=== PATIENT | male | born 1960 | race Caucasian/White ===

== ENCOUNTER 2020-02-02 11:28 | Emergency (ER) | payer BC, SELFPAY ==
[2020-02-02 11:43] VITALS: BP 157/88; PULSE 77; RESP 16; TEMP 36.9; O2SAT 97; BMI 39.5
[2020-02-02] MEDS: Lidocaine HCl 2 % MPF 5 ML VIAL INFILTRATI ×2 (12:12)
--- NOTE | 2020-02-02 12:18 | ED_ITS ---
HPI - Skin/Abscess/Foreign Bdy General Chief complaint: Skin/Abscess/Foreign Body Stated complaint: abscess Time Seen by Provider: 02/02/20 11:46 Source: patient Mode of arrival: ambulatory Limitations: no limitations History of Present Illness HPI narrative: patient presents to ED for right-sided upper cheek mass with redness and swelling. Patient states he was bit by insects which he thought was a spider last week and was placed on Bactrim for the past 5 days and now states there is drainage from area of erythema the right side of cheek. Patient states he sleeps most of last night. Patient states swelling has improved. Patient denies any shortness of breath, sensation of throat closing. Fever, chills. Related Data Previous Rx's Medication Instructions Recorded cephalexin [Keflex] 500 mg PO QID #28 cap 02/02/20 doxycycline monohydrate 100 mg PO BID #14 cap 02/02/20 naproxen 500 mg PO BID PRN #20 tab 02/02/20 Allergies Allergy/AdvReac Type Severity Reaction Status Date / Time rosuvastatin [From Crestor] AdvReac Nausea and Verified 02/02/20 11:42 Vomiting Review of Systems Review of Systems: Yes all other systems are reviewed and are negative Constitutional: Constitutional: Reports as per HPI and Reports no additional constitutional complaints Eyes: Eyes: Reports as per HPI and Reports no additional eye complaints ENT: Reports system reviewed and no additional complaints, except as documented and Reports as per HPI Comments: right-sided facial abscess/braeden lulitis Cardiovascular: Cardiovascular: Reports as per HPI and Reports no additional cardiovascular complaints Respiratory: Respiratory: Reports as per HPI and Reports no additional resp iratory complaints Gastrointestinal: Gastrointestinal: Reports as per HPI and Reports no additional gastrointestinal complaints Musculoskeletal: Musculoskeletal: Reports no additional musculoskeletal complaints and Reports as per HPI Neurologic: Reports system reviewed and no additional complaints, except as documented and Reports as per HPI Psychiatric: Psychiatric: Reports no additional psychiatric complaints and Reports as per HPI PMF Past Medical History Medical History Abdominal hernia HTN (hypertension) Prediabetes Surgical History H/O foot surgery H/O lateral meniscus repair of left knee H/O sinus surgery History of appendectomy Social History Social History Advance Directives: No Advance Directives Information Provided: No Physical Exam Vital Signs: Vital Signs: Last Vital Signs Temp 98.4 F 02/02/20 11:43 Pulse 77 02/02/20 11:43 Resp 16 02/02/20 11:43 BP 157/88 H 02/02/20 11:43 Pulse Ox 97 02/02/20 11:43 Body Mass Index 39.5 Const: General: cooperative, healthy appearing, comfortable, no acute distress, well developed, alert, awake and Physically active HENMT: Other: right cheek positive for area of erythema, palpable mass, and some fluctuance. Mass also feels hard. Negative presently for any active drainage. Positive for point of entry from windows drainage. Oral cavity negative for any be Coastal swelling, swelling of the gums, or teeth infections. Negative for swelling of uvula. Patient speaking in full sentences Head: Yes normal to inspection and Yes No palpable skull fracture present Eyes: General: appearance normal, both eyes and all related structures Neck: Neck: Yes normal visual inspection, Yes full ROM, Yes no lymphadenopathy, Yes no meningeal signs, Yes trachea midline, Yes supple and No tender Chest: Chest palpation & inspection: normal inspection of the chest, normal palpation of entire chest wall and no localized rib tenderness Resp: Effort & Inspection: normal respiratory effort and able to speak in complete sentences Auscultation: clear to auscultation bilaterally Cardio: Jugular venous distension: no JVD Heart sounds: S1 normal heart sound present and S2 normal heart sound present GI: Inspection: Yes normal to inspection and No abdominal wall ecchymosis Palpation (GI): Soft to palpation, not firm, nontender, no guarding and not rigid : General: No CVA tenderness and Yes no CVA tenderness Back/Spine/Pelvis: Back: no CVA tenderness, No CVA tenderness and No back tenderness Skin: General skin exam: no rashes or lesions noted Neuro: General: gait normal, no meningeal signs and CN's II-XI intact bilaterally Cranial nerves: Yes CN's II-XII intact bilaterally Extrem: General: Yes normal to inspection and Yes full ROM Psych: Appearance: grossly normal, well kempt and not disheveled Course Course Course Narrative: bedside ultrasound right side of face shows small collection of abscess and rest of the site with erythema shows signs for cellulitis. Will attempt I and D with small incision where marker is placed on area of most fluctuance an abscess. Tdap will be ordered. Patient antibiotics will be changed from Bactrim to doxycycline and Keflex. Reevaluation(s) Reevaluation #1: right-sided facial abscess around 3 cm was anesthetized with 2% lidocaine. 6 mL was used. Wound was cleaned with sterile normal saline and Betadine. Size 11 blade was used for incision and copious amounts of yellow discharge mixed with blood was drained. Forceps also used to open up pockets. Inside incision wound was washed with normal saline. Packing placed a new dressing. Patient states he feels better. patient given tetanus injection. Patient informed to stop taking Bactrim and instead will be prescribed Keflex and doxycycline. Face is now significantly less swollen and patient feels better. Time: 13:20 MDM - Skin/Abscess/Foreign Bdy MDM Narrative Medical decision making narrative: Facial cellulitis/abscess Discharge Plan Discharge Clinical Impression: Cellulitis and abscess of face Patient Disposition: Home, Self-Care Instructions: Cellulitis (ED), Abscess (ED) Additional Instructions: return to the ED for worsening facial pain, increased swelling, throat pain, shortness of breath, drooling, weakness, or any other concerning symptoms. stop taking Bactrim. Instead take Keflex and doxycycline. Return to the ED in 2 days for repacking of abscess Prescriptions: New cephalexin [Keflex] 500 mg capsule 500 mg PO QID Qty: 28 RF: 0 doxycycline monohydrate 100 mg capsule 100 mg PO BID Qty: 14 RF: 0 naproxen 500 mg tablet 500 mg PO BID PRN (Reason: pain) Qty: 20 RF: 0 Referrals: Leif Mejia MD [Primary Care Provider] - 2 days (Right facial cellulitis/abscess) Stand Alone Forms: Work/School Release Interventions: ED Discharge Assessment Last Done: 02/02/20 14:01 Discharge Date/Time: 02/02/20 14:02 Print Language: Moldovan
--- NOTE | 2020-02-02 14:02 | PC.NURSE ---
cece remy in to assess, perform i&d after us performed, dsd applied
== END 2020-02-02 14:02 | disposition home or self-care (01) ==
PROVIDERS: Emergency Provider Emergency Medicine; PCP Internal Medicine
DX: L03.211 Cellulitis of face (principal); L02.01 Cutaneous abscess of face
CPT/HCPCS: 10060; 87071; 87077; 87147; 87186; 87205; 90471; 90715; 99283; 99284

== ENCOUNTER 2020-02-03 11:25 | Emergency (ER) | payer BC, SELFPAY ==
[2020-02-03 11:33] VITALS: BP 166/95; PULSE 70; RESP 18; TEMP 37; O2SAT 97; BMI 39.5
--- NOTE | 2020-02-03 12:25 | ED.SKABFB ---
HPI - Skin/Abscess/Foreign Bdy General Chief complaint: Skin/Abscess/Foreign Body <TOO Stewart - Last Filed: 02/03/20 13:27> Stated complaint: Wound check <TOO Stewart - Last Filed: 02/03/20 13:27> Source: patient <TOO Stewart - Last Filed: 02/03/20 13:27> Mode of arrival: ambulatory <TOO Stewart - Last Filed: 02/03/20 13:27> Limitations: no limitations <TOO Stewart - Last Filed: 02/03/20 13:27> History of Present Illness HPI narrative: patient presents to the ED for wound check evaluation and new packing placed. Patient had right facial abscess drained yesterday. Patient denies any other complaint. <TOO Stewart - Last Filed: 02/03/20 13:27> Related Data Home medications: Previous Rx's Medication Instructions Recorded cephalexin [Keflex] 500 mg PO QID #28 cap 02/02/20 doxycycline monohydrate 100 mg PO BID #14 cap 02/02/20 naproxen 500 mg PO BID PRN #20 tab 02/02/20 <TOO Stewart - Last Filed: 02/03/20 13:27> Allergies/Adverse reactions: Allergies Allergy/AdvReac Type Severity Reaction Status Date / Time rosuvastatin [From Crestor] AdvReac Nausea and Verified 02/02/20 11:42 Vomiting <TOO Stewart - Last Filed: 02/03/20 13:27> Review of Systems Review of Systems: Yes all other systems are reviewed and are negative <TOO Stewart - Last Filed: 02/03/20 13:27> Constitutional: Constitutional: Reports as per HPI and Reports no additional constitutional complaints <TOO Stewart Last Filed: 02/03/20 13:27> Eyes: Eyes: Reports as per HPI and Reports no additional eye complaints <TOO Stewart - Last Filed: 02/03/20 13:27> ENT: Reports system reviewed and no additional complaints, except as documented and Reports as per HPI <TOO Stewart Last Filed: 02/03/20 13:27> Cardiovascular: Cardiovascular: Reports as per HPI and Reports no additional cardiovascular complaints <TOO Stewart - Last Filed: 02/03/20 13:27> Respiratory: Respiratory: Reports as per HPI and Reports no additional respiratory complaints <TOO Stewart Last Filed: 02/03/20 13:27> Gastrointestinal: Gastrointestinal: Reports as per HPI and Reports no additional gastrointestinal complaints <TOO Stewart - Last Filed: 02/03/20 13:27> Musculoskeletal: Musculoskeletal: Reports no additional musculoskeletal complaints and Reports as per HPI <TOO Stewart - Last Filed: 02/03/20 13:27> Neurologic: Reports system reviewed and no additional complaints, except as documented and Reports as per HPI <TOO Stewart Last Filed: 02/03/20 13:27> Psychiatric: Psychiatric: Reports no additional psychiatric complaints and Reports as per HPI <TOO Stewart - Last Filed: 02/03/20 13:27> PMF Past Medical History Medical History: Medical History Abdominal hernia HTN (hypertension) Prediabetes Sleep apnea <TOO Stewart - Last Filed: 02/03/20 13:27> Surgical History: Surgical History H/O foot surgery H/O lateral meniscus repair of left knee H/O sinus surgery History of appendectomy <TOO Stewart Last Filed: 02/03/20 13:27> Social History Social History: Social History Alcohol intake: current Alcohol intake frequency: a few times a week Alcohol type: beer and hard liquor Smoking Status: Current every day smoker Advance Directives: No Advance Directives Information Provided: No <TOO Stewart - Last Filed: 02/03/20 13:27> Physical Exam Vital Signs: Vital Signs: Last Vital Signs Temp 98.6 F 02/03/20 11:33 Pulse 70 02/03/20 11:33 Resp 18 02/03/20 11:33 BP 166/95 H 02/03/20 11:33 Pulse Ox 97 02/03/20 11:33 Body Mass Index 39.5 <TOO Stewart - Last Filed: 02/03/20 13:27> Vital Signs: Last Vital Signs Temp 98.6 F 02/03/20 11:33 Pulse 70 02/03/20 11:33 Resp 18 02/03/20 11:33 BP 166/95 H 02/03/20 11:33 Pulse Ox 97 02/03/20 11:33 Body Mass Index 39.5 <Justin Mckeon MD - Last Filed: 02/21/20 20:22> Const: General: cooperative, healthy appearing, no acute distress, well developed and alert <TOO Stewart - Last Filed: 02/03/20 13:27> Orientation/consciousness: oriented to person, oriented to place, oriented to time and patient oriented x3 <TOO Stewart - Last Filed: 02/03/20 13:27> HENMT: Other: Right facial abscess is healing. bleeding through dressing. Negative for active profuse Drainage <TOO Stewart - Last Filed: 02/03/20 13:27> Head: Yes normal to inspection and Yes No palpable skull fracture present <TOO Stewart - Last Filed: 02/03/20 13:27> Eyes: General: appearance normal, both eyes and all related structures <TOO Stewart - Last Filed: 02/03/20 13:27> Neck: Neck: Yes normal visual inspection and Yes full ROM <TOO Stewart - Last Filed: 02/03/20 13:27> Chest: Chest palpation & inspection: normal inspection of the chest and normal palpation of entire chest wall <TOO Stewart - Last Filed: 02/03/20 13:27> Resp: Effort & Inspection: normal respiratory effort and able to speak in complete sentences <TOO Stewart Last Filed: 02/03/20 13:27> Cardio: Jugular venous distension: no JVD <TOO Stewart - Last Filed: 02/03/20 13:27> Heart sounds: S1 normal heart sound present and S2 normal heart sound present <TOO Stewart Last Filed: 02/03/20 13:27> GI: Inspection: Yes normal to inspection <TOO Stewart Last Filed: 02/03/20 13:27> : General: Yes CVA tenderness and Yes no CVA tenderness <TOO Stewart - Last Filed: 02/03/20 13:27> Back/Spine/Pelvis: Back: no CVA tenderness and CVA tenderness <TOO Stewart - Last Filed: 02/03/20 13:27> Skin: General skin exam: no rashes or lesions noted <TOO Stewart - Last Filed: 02/03/20 13:27> Neuro: General: oriented to person, oriented to place, oriented to time, patient oriented x3 and CN's II-XI intact bilaterally <TOO Stewart - Last Filed: 02/03/20 13:27> Cranial nerves: Yes CN's II-XII intact bilaterally <OTO Stewart - Last Filed: 02/03/20 13:27> Extrem: General: Yes normal to inspection and Yes full ROM <TOO Stewart - Last Filed: 02/03/20 13:27> Psych: Appearance: grossly normal, well kempt and not disheveled <TOO Stewart - Last Filed: 02/03/20 13:27> Course Course Course Narrative: dressing and packing was removed. Wound clean with Betadine iodine and alcohol prep. New packing was placed into the wound. A new dressing placed. <TOO Stewart - Last Filed: 02/03/20 13:27> I have reviewed the chart <Justin Mckeon MD - Last Filed: 02/21/20 20:22> Reevaluation(s) Reevaluation #1: Patient informed to continue taking antibiotics and informed to return to the ED in 2 days for repacking and re-evaluation of wound. <TOO Stewart Last Filed: 02/03/20 13:27> Time: 12:31 <TOO Stewart - Last Filed: 02/03/20 13:27> MDM - Skin/Abscess/Foreign Bdy MDM Narrative Medical decision making narrative: wound check <TOO Stewart Last Filed: 02/03/20 13:27> Discharge Plan Discharge Clinical Impression: Wound check, abscess <TOO Stewart - Last Filed: 02/03/20 13:27> Patient Disposition: Home, Self-Care <TOO Stewart - Last Filed: 02/03/20 13:27> Instructions: Abscess Follow-up (ED) <TOO Stewart - Last Filed: 02/03/20 13:27> Additional Instructions: return to the ED in 2 days for wound evaluation. Return to the ED immediately for worsening pain, facial swelling, headache, fever, chills, drooling, neck swelling, shortness of breath, chest pain, or any other concerning symptoms. <TOO Stewart - Last Filed: 02/03/20 13:27> Prescriptions: No Action cephalexin [Keflex] 500 mg capsule 500 mg PO QID Qty: 28 RF: 0 doxycycline monohydrate 100 mg capsule 100 mg PO BID Qty: 14 RF: 0 naproxen 500 mg tablet 500 mg PO BID PRN (Reason: pain) Qty: 20 RF: 0 <TOO Stewart - Last Filed: 02/03/20 13:27> Interventions: ED Discharge Assessment Last Done: 02/03/20 12:42 <TOO Stewart - Last Filed: 02/03/20 13:27> Discharge Date/Time: 02/03/20 12:43 <TOO Stewart - Last Filed: 02/03/20 13:27> Print Language: Puerto Rican <TOO Stewart - Last Filed: 02/03/20 13:27>
== END 2020-02-03 12:43 | disposition home or self-care (01) ==
PROVIDERS: Emergency Provider Emergency Medicine; PCP Internal Medicine
DX: L02.01 Cutaneous abscess of face (principal); Z79.899 Other long term (current) drug therapy
CPT/HCPCS: 99283

== ENCOUNTER 2020-02-05 12:42 | Emergency (ER) | payer BC, SELFPAY ==
--- NOTE | 2020-02-05 13:26 | ED_ITS ---
HPI - Wound/Laceration General Chief Complaint: Wound/Laceration <TOO Rowe - Last Filed: 02/05/20 15:25> Stated Complaint: WOUND RECHECK <TOO Rowe - Last Filed: 02/05/20 15:25> Time Seen by Provider: 02/05/20 13:24 <TOO Rowe Last Filed: 02/05/20 15:25> Source: patient <TOO Rowe Last Filed: 02/05/20 15:25> Mode of arrival: ambulatory <TOO Rowe Last Filed: 02/05/20 15:25> Limitations: no limitations <TOO Rowe Last Filed: 02/05/20 15:25> History of Present Illness HPI narrative: 59 y/o male presents back to the ER for a wound check. He was seen here on 02/01 initially for cellulitis and abscess on his face that was incised and drained. He was prescribed doxycycline and cephalexin. On reassessment on 02/02 wound was re-packed with plans for reassessment in 2 days. He continued on antibiotics. He denies fevers. There has continued to be some yellow drainage from the abscess, he presents with the same dressing in place with a teraderm on top. <TOO Rowe - Last Filed: 02/05/20 15:25> Onset (ago): day(s) (5) <TOO Rowe - Last Filed: 02/05/20 15:25> Location: face <TOO Rowe Last Filed: 02/05/20 15:25> Place: home <TOO Rowe Last Filed: 02/05/20 15:25> Patient tetanus UTD: Yes <TOO Rowe Last Filed: 02/05/20 15:25> Associated symptoms: none <TOO Rowe Last Filed: 02/05/20 15:25> Treatments prior to arrival: bandage <TOO Rowe Last Filed: 02/05/20 15:25> Related Data Home Medications: Previous Rx's Medication Instructions Recorded cephalexin [Keflex] 500 mg PO QID #28 cap 12/01/20 doxycycline monohydrate 100 mg PO BID #14 cap 02/02/20 naproxen 500 mg PO BID PRN #20 tab 02/02/20 <TOO Rowe Last Filed: 02/05/20 15:25> Allergies/Adverse Reactions: Allergies Allergy/AdvReac Type Severity Reaction Status Date / Time rosuvastatin [From Crestor] AdvReac Nausea and Verified 02/02/20 11:42 Vomiting <TOO Rowe - Last Filed: 02/05/20 15:25> Review of Systems Review of Systems: Constitutional: No Fever, No Chills Cardiovascular: No Chest Pain, No SOB Respiratory: No Cough, No Sputum Gastrointestinal: No Nausea, No Vomiting, No Diarrhea, No abdominal Pain Musculoskeletal: + joint pain (chronic), + Myalgias (chronic) Skin: + Skin Lesions, No rash Neuro: No Headache Psych: No Anxiety/Panic, No Depression Heme/Lymph: No Bruising, No Lymphadenopathy <TOO Rowe Last Filed: 02/05/20 15:25> [facility] Past Medical History Attestation statement: The following information was validated with the patient. <TOO Rowe Last Filed: 02/05/20 15:25> Medical History: Medical History Abdominal hernia HTN (hypertension) Prediabetes Sleep apnea <TOO Rowe Last Filed: 02/05/20 15:25> Surgical History: Surgical History H/O foot surgery H/O lateral meniscus repair of left knee H/O sinus surgery History of appendectomy <TOO Rowe Last Filed: 02/05/20 15:25> Social History Social History: Social History Alcohol intake: current Alcohol intake frequency: a few times a week Alcohol type: beer and hard liquor Smoking Status: Current every day smoker Advance Directives: No Advance Directives Information Provided: No <TOO Rowe Last Filed: 02/05/20 15:25> Physical Exam Vital Signs: Vital Signs: Last Vital Signs Temp 97.5 F 02/05/20 13:52 Pulse 78 02/05/20 13:52 Resp 18 02/05/20 13:52 BP 168/95 H 02/05/20 13:52 Pulse Ox 95 02/05/20 13:52 Body Mass Index 87.1 Appearance: Alert. Oriented X3. No acute distress. HEENT: right lower cheek moderate induration, mild erythema, no active drainage, no fluctuance Respiratory: No respiratory distress. Skin: Skin warm and dry. Normal skin color. Normal skin turgor. No rashes. Extremities: atrauamtic, no LE edema Neuro: Oriented X 3. No motor deficit. No sensory deficit. <TOO Rowe - Last Filed: 02/05/20 15:25> Vital Signs: Last Vital Signs Temp 97.5 F 02/05/20 13:52 Pulse 78 02/05/20 13:52 Resp 18 02/05/20 13:52 BP 168/95 H 02/05/20 13:52 Pulse Ox 95 02/05/20 13:52 Body Mass Index 87.1 <Justin Mckeon MD - Last Filed: 02/26/20 08:48> Course Course Course Narrative: 59 y/o male with right cheek abscess. Packing was removed, area was cleaned with Betadine and irrigated with saline. Packing replaced and light gauze placed on top. Culture growing S. aureus with susceptibilities appropriate for current antibiotic regimen, will continue. Patient to come back to ER in 2 days for packing removal and reassessment. Stable for d/c. <TOO Rowe - Last Filed: 02/05/20 15:25> I have reviewed the chart <Justin Mckeon MD - Last Filed: 02/26/20 08:48> Discharge Plan Discharge Clinical Impression: Cellulitis and abscess of face <TOO Rowe - Last Filed: 02/05/20 15:25> Patient Disposition: Home, Self-Care <TOO Rowe - Last Filed: 02/05/20 15:25> Instructions: Abscess (ED) <TOO Rowe - Last Filed: 02/05/20 15:25> Additional Instructions: Continue taking the antibiotics as previously prescribed. Keep area covered with light gauze. Replace as frequently as needed. Come back to the ER on Saturday to take out the packing and reassess the need to replace it. If you develop fever, increased redness/warmth or increased drainage of the abscess come back to the ER for further evaluation. <TOO Rowe - Last Filed: 02/05/20 15:25> Prescriptions: Continued cephalexin [Keflex] 500 mg capsule 500 mg PO QID Qty: 28 RF: 0 doxycycline monohydrate 100 mg capsule 100 mg PO BID Qty: 14 RF: 0 naproxen 500 mg tablet 500 mg PO BID PRN (Reason: pain) Qty: 20 RF: 0 <TOO Rowe - Last Filed: 02/05/20 15:25> Interventions: ED Discharge Assessment Last Done: 02/05/20 14:11 <TOO Rowe - Last Filed: 02/05/20 15:25> Discharge Date/Time: 02/05/20 14:13 <TOO Rowe - Last Filed: 02/05/20 15:25>
[2020-02-05 13:52] VITALS: BP 168/95; PULSE 78; RESP 18; TEMP 36.4; O2SAT 95; BMI 87.1
--- NOTE | 2020-02-05 14:09 | MHC.MBSS ---
seen by provider. wound repacked and dressed by provider. dc home. will come in in 2 days for another recheck.
== END 2020-02-05 14:13 | disposition home or self-care (01) ==
PROVIDERS: Emergency Provider Emergency Medicine; PCP Internal Medicine
DX: L03.211 Cellulitis of face (principal); I10 Essential (primary) hypertension; F17.200 Nicotine dependence, unspecified, uncomplicated; Z71.6 Tobacco abuse counseling; Z79.899 Other long term (current) drug therapy
CPT/HCPCS: 99284

== ENCOUNTER 2020-02-07 11:37 | Emergency (ER) | payer BC, SELFPAY ==
[2020-02-07 12:10] VITALS: BP 177/106; PULSE 77; RESP 16; TEMP 36.7; O2SAT 96; BMI 39.5
--- NOTE | 2020-02-07 12:36 | ED.WOUNDLAC ---
HPI - Wound/Laceration General Chief Complaint: Wound/Laceration Stated Complaint: wound check Time Seen by Provider: 02/07/20 12:20 Source: patient Mode of arrival: ambulatory Limitations: no limitations History of Present Illness HPI narrative: Pt here for abscess check on right cheek. No complaints, no fevers/chills. Seen here 02/01, 02/02, 02/04 for initially I&D and packing placed. On last visit packing was placed again but fell out this morning per patient. Compliant with cephalexin and doxycyline. Onset (ago): day(s) Location: face Place: home Patient tetanus UTD: Yes Associated symptoms: none Related Data Previous Rx's Medication Instructions Recorded cephalexin [Keflex] 500 mg PO QID #28 cap 02/02/20 doxycycline monohydrate 100 mg PO BID #14 cap 02/02/20 naproxen 500 mg PO BID PRN #20 tab 02/02/20 Allergies Allergy/AdvReac Type Severity Reaction Status Date / Time rosuvastatin [From Crestor] AdvReac Nausea and Verified 02/02/20 11:42 Vomiting Review of Systems Review of Systems: Yes all other systems are reviewed and are negative Constitutional: Constitutional: Reports no additional constitutional complaints, Denies body ache(s), Denies chills, Denies fever(s), Denies headache(s) and Denies weakness Eyes: Eyes: Reports no additional eye complaints and Denies change in vision ENT: Reports system reviewed and no additional complaints, except as documented, Denies dizziness, Denies headache(s), Denies nasal congestion, Denies nasal discharge and Denies neck pain Cardiovascular: Cardiovascular: Reports no additional cardiovascular complaints, Denies chest pain, Denies leg edema and Denies dyspnea Respiratory: Respiratory: Reports no additional respiratory complaints, Denies cough and Denies dyspnea Gastrointestinal: Gastrointestinal: Reports no additional gastrointestinal complaints, Denies abdominal pain, Denies diarrhea, Denies nausea and Denies vomiting Genitourinary: Genitourinary: Denies urinary incontinence Musculoskeletal: Musculoskeletal: Reports no additional musculoskeletal complaints, Denies back pain, Denies arthralgias, Denies joint swelling, Denies neck pain, Denies numbness and Denies tingling Integumentary/Breasts: Skin/Breast: Reports system reviewed and no additional complaints, except as docu and Denies rash Neurologic: Reports system reviewed and no additional complaints, except as documented, Denies Abnormal speech present, Denies dizziness, Denies headache(s), Denies numbness, Denies tingling and Denies weakness PMFSH Past Medical History Attestation statement: The following information was validated with the patient. Source: old records reviewed and nursing notes reviewed Medical History Abdominal hernia HTN (hypertension) Prediabetes Sleep apnea Surgical History H/O foot surgery H/O lateral meniscus repair of left knee H/O sinus surgery History of appendectomy Social History Social History Alcohol intake: current Alcohol intake frequency: a few times a week Alcohol type: beer and hard liquor Smoking Status: Current every day smoker Advance Directives: No Advance Directives Information Provided: No Physical Exam Vital Signs: Vital Signs: Last Vital Signs Temp 98.1 F 02/07/20 12:10 Pulse 77 02/07/20 12:10 Resp 16 02/07/20 12:10 BP 177/106 H 02/07/20 12:10 Pulse Ox 96 02/07/20 12:10 Body Mass Index 39.5 Const: General: cooperative, healthy appearing, comfortable and no acute distress Orientation/consciousness: patient oriented x3 Limitations: no limitations HENMT: Other: To the right cheek there is a small area of induration. There is no redness or tenderness. There is a small incision site noted and I was able to express a small amount of serous drainage. There is no fluctuance. Head: Yes normal to inspection Ears: hearing grossly normal bilaterally General nose exam: Normal external nose present Face and sinus: Yes normal facial exam Mouth: Normal oral and palatal mucosa present Throat: Yes posterior oropharynx normal Eyes: General: appearance normal, both eyes and all related structures Pupils: Equal, round and reactive pupils present Neck: Neck: Yes normal visual inspection Chest: Chest palpation & inspection: normal inspection of the chest Resp: Effort & Inspection: normal respiratory effort Auscultation: clear to auscultation bilaterally Cardio: Rate: regular rate Rhythm: regular rhythm Peripheral pulses: Peripheral pulses 2+ throughout GI: Inspection: Yes normal to inspection Palpation (GI): Soft to palpation and nontender Auscultation: normal bowel sounds Back/Spine/Pelvis: Thoracic/Lumbar Spine: thoracic and lumbar spine normal to inspection Skin: General skin exam: no rashes or lesions noted Neuro: General: patient oriented x3, no focal motor deficits and normal sensation to monofilament Cranial nerves: Yes Equal, round and reactive pupils present Cognition (Neuro): normal cognition Speech: No Abnormal speech present Gait exam (Neuro): Normal gait present Motor exam (neuro): 5/5 motor strength present throughout Extrem: General: Yes normal to inspection Course Course Course Narrative: Healing abscess. Patient has no complaints. He is taking his antibiotics as prescribed. The wound was cleaned with saline and irrigated. Topical antibiotic ointment and a dressing applied. Patient instructed to continue his medications and follow up with his primary care doctor as needed. Reviewed worrisome signs and symptoms and when to return to the emergency department. Comfortable with discharge home. Asymptomatic hypertension Discharge Plan Discharge Clinical Impression: Abscess re-check Patient Disposition: Home, Self-Care Instructions: Abscess Follow-up (ED) Additional Instructions: Wash the site with soap and water Warm compresses or warm tea bag 4 times daily Continue antibiotics Prescriptions: No Action cephalexin [Keflex] 500 mg capsule 500 mg PO QID Qty: 28 RF: 0 doxycycline monohydrate 100 mg capsule 100 mg PO BID Qty: 14 RF: 0 naproxen 500 mg tablet 500 mg PO BID PRN (Reason: pain) Qty: 20 RF: 0 Referrals: Leif Mejia MD [Primary Care Provider] - 2 days Stand Alone Forms: Work/School Release Interventions: ED Discharge Assessment Last Done: 02/07/20 12:45 Discharge Date/Time: 02/07/20 12:46
== END 2020-02-07 12:46 | disposition home or self-care (01) ==
PROVIDERS: Emergency Provider Internal Medicine; PCP Internal Medicine
DX: L02.01 Cutaneous abscess of face (principal); I10 Essential (primary) hypertension; F17.200 Nicotine dependence, unspecified, uncomplicated; Z71.6 Tobacco abuse counseling; Z79.899 Other long term (current) drug therapy
CPT/HCPCS: 99283

== ENCOUNTER → 2023-03-27 09:35 | Outpatient (BNVA) | payer OTHER, SELFPAY | PROVIDERS: PCP Internal Medicine; Visit Provider Physician Assistant Medical | DX: S29.012A Strain of muscle and tendon of back wall of thorax, initial encounter (principal); X50.1XXA Overexertion from prolonged static or awkward postures, initial encounter | CPT/HCPCS: 72072; 99203 ==

== ENCOUNTER → 2023-03-29 09:21 | Outpatient (BNVA) | payer OTHER, SELFPAY | PROVIDERS: PCP Internal Medicine; Visit Provider Internal Medicine | DX: S29.012A Strain of muscle and tendon of back wall of thorax, initial encounter (principal); X58.XXXA Exposure to other specified factors, initial encounter | CPT/HCPCS: 99213 ==

== ENCOUNTER → 2025-01-08 10:15 | Outpatient (BNVA) | payer OTHER, SELFPAY | PROVIDERS: PCP Internal Medicine; Visit Provider Physician Assistant | DX: S39.012A Strain of muscle, fascia and tendon of lower back, initial encounter (principal); X50.0XXA Overexertion from strenuous movement or load, initial encounter | CPT/HCPCS: 99204 ==

== ENCOUNTER → 2025-01-20 14:31 | Outpatient (BNVA) | payer OTHER, SELFPAY | PROVIDERS: PCP Internal Medicine; Visit Provider Physician Assistant | DX: S39.012A Strain of muscle, fascia and tendon of lower back, initial encounter (principal); X50.0XXA Overexertion from strenuous movement or load, initial encounter | CPT/HCPCS: 72110; 99214 ==

== ENCOUNTER → 2025-02-04 14:42 | Outpatient (BNVA) | payer OTHER, SELFPAY | PROVIDERS: PCP Internal Medicine; Visit Provider Physician Assistant | DX: M54.50 Low back pain, unspecified (principal) | CPT/HCPCS: 99213 ==

== ENCOUNTER → 2025-02-18 15:53 | Outpatient (BNVA) | payer OTHER, SELFPAY | PROVIDERS: PCP Internal Medicine; Visit Provider Physician Assistant | DX: S39.012D Strain of muscle, fascia and tendon of lower back, subsequent encounter (principal); X50.0XXD Overexertion from strenuous movement or load, subsequent encounter | CPT/HCPCS: 99213 ==

== ENCOUNTER → 2025-02-24 11:36 | Outpatient (BNVA) | payer OTHER, SELFPAY | PROVIDERS: PCP Internal Medicine; Visit Provider Physician Assistant | DX: S39.012D Strain of muscle, fascia and tendon of lower back, subsequent encounter (principal); X50.0XXD Overexertion from strenuous movement or load, subsequent encounter; M51.369 Other intervertebral disc degeneration, lumbar region without mention of lumbar back pain or lower extremity pain | CPT/HCPCS: 99214 ==